=== PATIENT | female | born 1950 | race Caucasian/White ===

== ENCOUNTER 2020-09-23 14:51 | Emergency (ER) | payer MEDICARE, OTHER ==
[2020-09-23 16:15] LABS: HEMOGLOBIN 13.9 gm/dl (12.3-15.3); RED BLOOD COUNT 4.29 M/UL (4.00-5.10); WHITE BLOOD COUNT 8.7 K/UL (4.5-11.0)
[2020-09-23 17:02] LABS: BUN/CREATININE RATIO 15 (0-10)
[2020-09-23] MEDS ORDERED: DECADRON6 MG PO (18:34)
[2020-09-23] MEDS ORDERED: AZITHROMYCIN250 MG PO (18:34)
== END 2020-09-23 19:35 | disposition home or self-care (01) ==
LOC: ER1 14:51
DX: U07.1 COVID-19 (principal); J12.82 Pneumonia due to coronavirus disease 2019; I10 Essential (primary) hypertension; Z90.49 Acquired absence of other specified parts of digestive tract; Z88.2 Allergy status to sulfonamides
CPT/HCPCS: 36415; 71045; 80053; 81001; 82550; 82553; 83605; 83874; 83880; 84439; 84443; 84484; 85025; 87040; 87081; 87880; 93005; 96374; 99285; J1100